=== PATIENT | female | born 1990 | race Native Hawaiian/Other Pacific Islander ===

== ENCOUNTER 2016-11-28 17:32 | Emergency (ER) | payer BC, OTHER ==
[~2016-11-28] VITALS: Ht 160 cm; Wt 80.7 kg
== END 2016-11-28 19:05 | disposition home or self-care (01) ==
LOC: ED 17:32
DX: N93.8 Other specified abnormal uterine and vaginal bleeding (principal)
CPT/HCPCS: 81000; 81025; 99283